=== PATIENT | male | born 1965 | race Caucasian/White ===

== ENCOUNTER 2022-04-29 22:05 | Emergency (ER) | payer OTHER ==
[~2022-04-29] VITALS: Ht 182.9 cm; Wt 81.6 kg
[2022-04-29 22:21] VITALS: BP 137/85
--- NOTE | 2022-04-29 22:21 | NUR ---
BIBS C/O LOWERBACK PAIN S/P "LIFTING HEAVY OBJECTS" & C/O RASH ON RECTUM
[2022-04-29] MEDS ORDERED: KETO200T15 PO (22:33)
[2022-04-29] MEDS ORDERED: CYCL5TAB PO (22:33)
[2022-04-29] MEDS ORDERED: IBUP-1957 PO (22:33)
--- NOTE | 2022-04-29 22:42 | NUR ---
Patient discharged to home in stable condition. Written and verbal after care instructions given. Patient verbalizes understanding of instruction.
== END 2022-04-29 22:43 | disposition home or self-care (01) ==
LOC: ER 22:08
DX: M54.50 Low back pain, unspecified (principal); B36.9 Superficial mycosis, unspecified; Z79.899 Other long term (current) drug therapy

== ENCOUNTER 2022-05-26 02:26 | Emergency (ER) | payer OTHER ==
[~2022-05-26] VITALS: Ht 182.9 cm; Wt 86.2 kg
[~2022-05-26 02:26] MED LIST: CYCL5TAB PO; IBUP-1957 PO; KETO200T15 PO
--- NOTE | 2022-05-26 02:38 | NUR ---
GADIEL 87 PICKED UP FROM A BAR FOR C/O N/V. ADMITTED ON DRINKING ALCOHOL. DENIED DRUG USE. VSS. ASSISTED TO BED 12 ER. AWAITING FOR MD ESCALANTE.
[2022-05-26] MEDS ORDERED: ONDANSETRON HCL/PF 4 MG/2 ML VIAL ONE (02:42)
[2022-05-26] MEDS ORDERED: ONDANSETRON HCL/PF - ER 4 MG/2 ML VIAL IM ONE (03:00)
[2022-05-26] MEDS ORDERED: FAMOTIDINE (20 MG) 20 MG TABLET ONE (05:48)
[2022-05-26 05:53] VITALS: BP 138/88
--- NOTE | 2022-05-26 05:58 | NUR ---
Patient discharged to home in stable condition. Written and verbal after care instructions given. Patient verbalizes understanding of instruction.Patient is awake and alert to self, day, and place. pt ambulatory with a steady gait
[2022-05-26] MEDS ORDERED: FAMOTIDINE (20 MG) 20 MG TABLET PO ONE (06:00)
== END 2022-05-26 05:59 | disposition home or self-care (01) ==
LOC: ER 02:27
DX: F10.129 Alcohol abuse with intoxication, unspecified (principal); R11.2 Nausea with vomiting, unspecified; Z79.899 Other long term (current) drug therapy; Y90.9 Presence of alcohol in blood, level not specified
CPT/HCPCS: 99283; 96372; J2405

== ENCOUNTER 2022-12-08 15:09 | Emergency (ER) | payer OTHER ==
[~2022-12-08] VITALS: Ht 182.9 cm; Wt 81.6 kg
[2022-12-08] MEDS ORDERED: CLOT15CR27 TP (17:39)
[2022-12-08 17:45] VITALS: BP 138/84; TEMP 98.8; O2SAT 98
== END 2022-12-08 17:45 | disposition home or self-care (01) ==
LOC: ER 15:09
DX: M79.642 Pain in left hand (principal)
CPT/HCPCS: 73130-TC

== ENCOUNTER 2025-03-31 21:48 | Emergency (ER) | payer OTHER ==
[~2025-03-31] VITALS: Ht 175.3 cm; Wt 81.6 kg
[~2025-03-31 21:48] MED LIST changes: +CLOT15CR27 TP
[2025-04-01] MEDS ORDERED: CEPH-570 PO (00:09)
[2025-04-01] MEDS ORDERED: SULF1TAB48 PO (00:09)
[2025-04-01] MEDS ORDERED: PRED50TA PO (00:23)
[2025-04-01 00:46] VITALS: BP 152/87; TEMP 98; O2SAT 98
== END 2025-04-01 00:46 | disposition home or self-care (01) ==
LOC: ER 21:53
DX: S13.4XXA Sprain of ligaments of cervical spine, initial encounter (principal); S23.3XXA Sprain of ligaments of thoracic spine, initial encounter; S09.90XA Unspecified injury of head, initial encounter; M51.26 Other intervertebral disc displacement, lumbar region; Z79.52 Long term (current) use of systemic steroids; Z79.1 Long term (current) use of non-steroidal anti-inflammatories (NSAID); V18.4XXA Pedal cycle driver injured in noncollision transport accident in traffic accident, initial encounter; Y93.89 Activity, other specified; Y92.89 Other specified places as the place of occurrence of the external cause; Y99.8 Other external cause status
CPT/HCPCS: 70450-TC; 72125-TC; 72128-TC; 72131-TC